=== PATIENT | female | born 1940 | race Caucasian/White ===

== ENCOUNTER 2023-12-04 01:50 | Inpatient (IN) | payer BC, MEDICAID ==
[~2023-12-04] VITALS: Ht 160 cm; Wt 74.8 kg
[2023-12-04] MEDS: normal saline 1000ML IV soln IVB ONE (02:32)
[2023-12-04 02:45] LABS: BASOPHILS % (AUTO) 0.2 % (0-1); EOSINOPHILS % (AUTO) 0 % (0-6)
[2023-12-04 02:46] LABS: LYMPHOCYTES # (AUTO) 0.9 X10'3 (1.1-4.8); LYMPHOCYTES % (AUTO) 7.9 % (21-51); MEAN PLATELET VOLUME 8.7 FL (7.4-10.4); MONOCYTES # (AUTO) 1.3 X10'3 (0-0.9); MONOCYTES % (AUTO) 10.8 % (2-12); NEUTROPHILS # (AUTO) 9.6 X10'3 (1.8-7.7); NEUTROPHILS % (AUTO) 81.1 % (42-75); PLATELET COUNT 344 X10'3 (140-440); WHITE BLOOD COUNT 11.9 X10'3 (4.5-11.0)
[2023-12-04] MEDS: ondansetron/PF 4mg/2ml inj IV ONE (02:50)
[2023-12-04] MEDS: famotidine/PF 10 mg/ml inj IV ONE (02:50)
[2023-12-04 02:53] LABS: ALBUMIN 3.6 G/DL (3.4-5.0); ANION GAP 24 (8-16); BLOOD UREA NITROGEN 89 MG/DL (7-18); BUN/CREATININE RATIO 13.6 (10.0-20.0); CALCIUM 8.3 MG/DL (8.5-10.1); CHLORIDE 101 MMOL/L (99-107); CREATININE 6.55 MG/DL (0.40-0.90); GLUCOSE 99 MG/DL (70-104); SODIUM 138 MMOL/L (135-145); eCRCL 5 ML/MIN; eGFR 6 ML/MIN
[2023-12-04 03:15] LABS: HEMATOCRIT 40.8 % (35.0-45.0); MEAN CORPUSCULAR HEMOGLOBIN 20.5 PG (27.0-31.0); MEAN CORPUSCULAR HGB CONC 31.8 g/dL (33.0-36.5); MEAN CORPUSCULAR VOLUME 64.4 FL (78-98); RED BLOOD COUNT 6.33 X10'6 (4.20-5.60); RED CELL DISTRIBUTION WIDTH 20.1 % (11.5-14.5)
[2023-12-04 03:17] LABS: POTASSIUM 2.4 MMOL/L (3.5-5.1); TOTAL CARBON DIOXIDE 12.9 MMOL/L (24-32)
[2023-12-04] MEDS: LidoCAINE 2% Topical Jelly 11mL syringe (UROJET) TOP ONE (03:32)
[2023-12-04] MEDS: piperacillin/tazo 3.375gm/50ml 50 ML IV ONE (03:56)
[2023-12-04] MEDS: potassium CL 10mEq/100ml bag 100 ML IV SCH (03:57)
[2023-12-04] MEDS: ringers solution, lactated 1000ml IV soln IV ONE (03:57)
[2023-12-04] MEDS: sodium bicarbonate (8.4%) inj. 50 MEQ in dextrose 5%-water 1,000 ML IV SCH (03:58)
[2023-12-04 04:00] LABS: LIPASE > 375 U/L (16-77)
[2023-12-04] MEDS ORDERED: mag hydrox/Alum hydrox/simeth 30ml oral suspension PO PRN (04:00)
[2023-12-04] MEDS ORDERED: potassium Cl 20 mEq SR tablet PO PRN (04:00)
[2023-12-04] MEDS ORDERED: magnesium Cl slow-release 64mg tablet PO PRN (04:00)
[2023-12-04] MEDS ORDERED: magnesium 2GM in 50ml NS 50 ML IV PRN (04:00)
[2023-12-04] MEDS ORDERED: magnesium hydroxide 30ml (MOM) UD suspension PO PRN (04:00)
[2023-12-04] MEDS ORDERED: acetaminophen 325mg tablet PO PRN (04:00)
[2023-12-04] MEDS ORDERED: ondansetron/PF 4mg/2ml inj IV PRN (04:00)
[2023-12-04] MEDS ORDERED: magnesium 4gm in 100ml NS 100 ML IV PRN (04:00)
[2023-12-04 04:33] LABS: HEMOGLOBIN A1C 5.4 % (4.5-6.2)
[2023-12-04] MEDS: potassium Cl 20 mEq SR tablet PO STA (04:34)
[2023-12-04] MEDS: normal saline 1000ml 1,000 ML IV SCH ×2 (04:41→10:38)
[2023-12-04 04:52] LABS: ALANINE AMINOTRANSFERASE 23 U/L (12-78); ALBUMIN/GLOBULIN RATIO 0.8 (1.1-1.5); ALKALINE PHOSPHATASE 69 IU/L (46-116); ASPARTATE AMINO TRANSFERASE 25 U/L (10-37); BILIRUBIN,DIRECT 0.2 MG/DL (0-0.3); BILIRUBIN,TOTAL 0.4 MG/DL (0.1-1.0); MAGNESIUM 2.2 MG/DL (1.5-2.4); PRO BRAIN NATRIURETIC PEPTIDE 3572 PG/ML (0-450); TOTAL PROTEIN 7.9 G/DL (6.4-8.2)
[2023-12-04 05:33] LABS: PLATELET ESTIMATE NORMAL
[2023-12-04 05:34] LABS: ANISOCYTOSIS 3+; MICROCYTOSIS 2+
[2023-12-04 05:35] LABS: BURR CELLS FEW; ELLIPTOCYTES FEW
[2023-12-04 07:17] LABS: BILIRUBIN,URINE NEGATIVE (Neg); CLARITY,URINE CLOUDY (Clear); COLOR,URINE YELLOW (Yellow); GLUCOSE, URINE NEGATIVE (Neg); KETONES,URINE TRACE mg/dl (Neg); LEUKOCYTE ESTERASE ,URINE SMALL (Neg); NITRITES, URINE NEGATIVE (Neg); OCCULT BLOOD,URINE TRACE-INTACT (Neg); PROTEIN,URINE 100 mg/dl (Neg); UROBILINOGEN,URINE 0.2 E.U/dL (0.2-1.0)
[2023-12-04 07:19] LABS: UA COLLECTION TYPE FOLEY CATH
[2023-12-04 07:23] LABS: BACTERIA,URINE 4+ /HPF (Neg); RBC,URINE 0-2 /HPF (0-2); SQUAMOUS EPITHELIAL CELL,UR MODERATE /LPF (FEW); WBC,URINE 50-100 /HPF (0-4)
[2023-12-04 07:24] LABS: MUCUS STRANDS NONE SEEN /LPF (Neg); RENAL CELLS, URINE FEW /HPF; TRANSITIONAL EPI CELLS,URINE FEW /HPF; WBC CLUMPS,URINE FEW /HPF (NEGATIVE)
[2023-12-04] MEDS: K and/or MAG REPLACEMENT MC SCH (08:00)
[2023-12-04] MEDS: docusate sod 100mg capsule PO SCH (08:00)
[2023-12-04] MEDS: azithromycin 250mg tablet PO SCH (08:32)
[2023-12-04] MEDS: heparin, porcine 5000 units/ml vial SQ SCH (08:32)
[2023-12-04 09:22] LABS: ALANINE AMINOTRANSFERASE 20 U/L (12-78); ALBUMIN 2.4 G/DL (3.4-5.0); ALBUMIN/GLOBULIN RATIO 0.7 (1.1-1.5); ALKALINE PHOSPHATASE 44 IU/L (46-116); ANION GAP 16 (8-16); BILIRUBIN,TOTAL 0.5 MG/DL (0.1-1.0); BLOOD UREA NITROGEN 78 MG/DL (7-18); BUN/CREATININE RATIO 15.4 (10.0-20.0); CALCIUM 6.4 MG/DL (8.5-10.1); CHLORIDE 92 MMOL/L (99-107); CREATININE 5.07 MG/DL (0.40-0.90); SODIUM 123 MMOL/L (135-145); TOTAL PROTEIN 5.8 G/DL (6.4-8.2); eCRCL 7 ML/MIN; eGFR 8 ML/MIN
[2023-12-04 09:26] LABS: ASPARTATE AMINO TRANSFERASE 56 U/L (10-37); POTASSIUM 3.1 MMOL/L (3.5-5.1)
[2023-12-04 09:37] LABS: GLUCOSE 575 MG/DL (70-104); TOTAL CARBON DIOXIDE 14.9 MMOL/L (24-32)
[2023-12-04] MEDS: potassium Cl 40MEQ/1/2NS 520ml 520 ML IV PRN (09:46)
[2023-12-04] MEDS: INSULIN LISPRO 100 UNIT/ML INSULN.PEN MULTI-DOSE SQ STA (10:01)
[2023-12-04] MEDS ORDERED: DEXTROSE 15 GM of carb/4 tabs (each vial/BOTTLE has 4 tablets) PO PRN ×2 (10:15)
[2023-12-04] MEDS ORDERED: dextrose 50%-water 50ml dispensing syringe IV PRN ×2 (10:15)
[2023-12-04] MEDS ORDERED: glucagon, human recombinant 1mg kit SUBCUT PRN (10:15)
[2023-12-04] MEDS ORDERED: sodium bicarbonate (8.4%) inj. 50 MEQ in normal saline 1000ml 1,000 ML IV SCH (10:50)
[2023-12-04] MEDS: metoprolol succinate 25mg (24-HOUR) SR. Tablet PO SCH (10:51)
[2023-12-04 11:39] LABS: APTT 33 SECONDS (22-32); INR 1.2 INR; PROTHROMBIN TIME 12.1 SECONDS (9.0-12.0)
[2023-12-04] MEDS: INSULIN LISPRO 100 UNIT/ML INSULN.PEN MULTI-DOSE SQ SCH (11:45)
[2023-12-04] MEDS: sodium bicarbonate (8.4%) inj. 100 MEQ in sodium chloride 0.45% 1,000 ML IV SCH (12:10)
[2023-12-04] MEDS ORDERED: ONDA4TAB12 PO (18:54)
[2023-12-04] MEDS ORDERED: OMEP20CA16 PO (18:54)
[2023-12-04] MEDS ORDERED: SERT-153 PO (18:54)
[2023-12-04] MEDS ORDERED: APIX5TAB3 PO (18:54)
[2023-12-04] MEDS ORDERED: LOPE2CAP14 PO (18:54)
[2023-12-04] MEDS ORDERED: CETI-90 PO (18:54)
[2023-12-04] MEDS ORDERED: TAM75C PO (18:54)
[2023-12-04] MEDS ORDERED: LISI20TA28 PO (18:54)
[2023-12-04] MEDS ORDERED: CETI10CA PO (18:54)
[2023-12-04] MEDS ORDERED: GABA-530 PO (18:54)
[2023-12-04] MEDS ORDERED: MONT-40 PO (18:54)
[2023-12-04] MEDS ORDERED: ATOR40TA PO (18:54)
[2023-12-04] MEDS ORDERED: METO50TA16 PO (18:54)
[2023-12-04 19:43] LABS: ALANINE AMINOTRANSFERASE 17 U/L (12-78); ALBUMIN 2.4 G/DL (3.4-5.0); ALBUMIN/GLOBULIN RATIO 0.8 (1.1-1.5); ALKALINE PHOSPHATASE 43 IU/L (46-116); ANION GAP 13 (8-16); ASPARTATE AMINO TRANSFERASE 19 U/L (10-37); BILIRUBIN,TOTAL 0.4 MG/DL (0.1-1.0); BLOOD UREA NITROGEN 73 MG/DL (7-18); BUN/CREATININE RATIO 18.5 (10.0-20.0); CALCIUM 6.5 MG/DL (8.5-10.1); CHLORIDE 103 MMOL/L (99-107); CREATININE 3.95 MG/DL (0.40-0.90); GLUCOSE 64 MG/DL (70-104); MAGNESIUM 1.5 MG/DL (1.5-2.4); PHOSPHORUS 4.8 MG/DL (2.3-4.5); TOTAL CARBON DIOXIDE 22.8 MMOL/L (24-32); TOTAL PROTEIN 5.4 G/DL (6.4-8.2); eCRCL 9 ML/MIN; eGFR 11 ML/MIN
[2023-12-04 19:57] LABS: SODIUM 139 MMOL/L (135-145)
[2023-12-04 20:00] VITALS: RESP 22; O2SAT 96
[2023-12-04 20:13] LABS: POTASSIUM 2.1 MMOL/L (3.5-5.1)
[2023-12-04 20:30] VITALS: BP 151/55; PULSE 75; RESP 22; TEMP 97.7; O2SAT 96
[2023-12-04 22:00] VITALS: BP 135/52; PULSE 76; RESP 25; TEMP 97.4; O2SAT 97
[2023-12-04] MEDS: piperacillin/tazo 3.375gm/50ml 50 ML IV SCH (22:13)
[2023-12-04] MEDS: apixaban 2.5mg tablet PO SCH (23:48)
[2023-12-05] VITALS (8 sets, daily range): BP systolic 125–150; BP diastolic 44–57; PULSE 68–85; RESP 14–22; TEMP 97.2–98.4; O2SAT 94–98
[2023-12-05 08:39] LABS: BASOPHILS % (AUTO) 0.2 % (0-1); EOSINOPHILS % (AUTO) 0 % (0-6); LYMPHOCYTES # (AUTO) 1.1 X10'3 (1.1-4.8); MEAN CORPUSCULAR HGB CONC 30.4 g/dL (33.0-36.5); MEAN CORPUSCULAR VOLUME 65.8 FL (78-98); MEAN PLATELET VOLUME 8.7 FL (7.4-10.4); MONOCYTES # (AUTO) 1.2 X10'3 (0-0.9); MONOCYTES % (AUTO) 13.9 % (2-12); NEUTROPHILS # (AUTO) 6.2 X10'3 (1.8-7.7); NEUTROPHILS % (AUTO) 72.9 % (42-75); PLATELET COUNT 180 X10'3 (140-440); RED BLOOD COUNT 5.02 X10'6 (4.20-5.60); RED CELL DISTRIBUTION WIDTH 21.1 % (11.5-14.5); WHITE BLOOD COUNT 8.5 X10'3 (4.5-11.0)
[2023-12-05 08:51] LABS: APTT 33 SECONDS (22-32); INR 1.2 INR; PROTHROMBIN TIME 12.3 SECONDS (9.0-12.0)
[2023-12-05 08:59] LABS: ALANINE AMINOTRANSFERASE 17 U/L (12-78); ALBUMIN 2.6 G/DL (3.4-5.0); ALBUMIN/GLOBULIN RATIO 0.8 (1.1-1.5); ALKALINE PHOSPHATASE 46 IU/L (46-116); ANION GAP 16 (8-16); ASPARTATE AMINO TRANSFERASE 22 U/L (10-37); BILIRUBIN,TOTAL 0.5 MG/DL (0.1-1.0); BLOOD UREA NITROGEN 74 MG/DL (7-18); BUN/CREATININE RATIO 25.3 (10.0-20.0); CALCIUM 7.7 MG/DL (8.5-10.1); CHLORIDE 108 MMOL/L (99-107); CHOLESTEROL 70 MG/DL (0-200); CREATININE 2.92 MG/DL (0.40-0.90); GLUCOSE 76 MG/DL (70-104); HDL CHOLESTEROL 35 MG/DL (35-60); LDL CHOLESTEROL 21 MG/DL (50-100); MAGNESIUM 1.7 MG/DL (1.5-2.4); PHOSPHORUS 3.9 MG/DL (2.3-4.5); SODIUM 142 MMOL/L (135-145); TOTAL CARBON DIOXIDE 17.6 MMOL/L (24-32); TOTAL PROTEIN 5.8 G/DL (6.4-8.2); TRIGLYCERIDES 130 MG/DL (20-135); eCRCL 12 ML/MIN; eGFR 15 ML/MIN
[2023-12-05 09:01] LABS: POTASSIUM 2.9 MMOL/L (3.5-5.1)
[2023-12-05 09:24] LABS: ANISOCYTOSIS 3+; ELLIPTOCYTES FEW; MICROCYTOSIS 2+; PLATELET ESTIMATE NORMAL; TOTAL CELLS COUNTED 100
[2023-12-05] MEDS: nystatin 15 GM powder TP SCH (09:51)
[2023-12-05 11:50] LABS: LIPASE 318 U/L (16-77)
[2023-12-05 13:41] LABS: C DIFFICILE TOXINS A&B NEGATIVE (Neg)
[2023-12-05 13:42] LABS: C DIFF ANTIGEN NEGATIVE (NEGATIVE); C DIFF SPECIMEN=DIARRHEA? ACCEPTABLE
[2023-12-05] MEDS: sodium bicarbonate (8.4%) inj. 100 MEQ in dextrose 5%-water 1,000 ML IV SCH (13:52)
[2023-12-05] MEDS: lactose-reduced food (Ensure Enlive) - 237ml bottle PO SCH (18:33)
[2023-12-05 18:43] LABS: ALBUMIN 2.7 G/DL (3.4-5.0); ANION GAP 13 (8-16); BLOOD UREA NITROGEN 59 MG/DL (7-18); BUN/CREATININE RATIO 30.4 (10.0-20.0); CALCIUM 7.8 MG/DL (8.5-10.1); CHLORIDE 108 MMOL/L (99-107); CREATININE 1.94 MG/DL (0.40-0.90); GLUCOSE 104 MG/DL (70-104); MAGNESIUM 1.8 MG/DL (1.5-2.4); PHOSPHORUS 2.7 MG/DL (2.3-4.5); SODIUM 143 MMOL/L (135-145); TOTAL CARBON DIOXIDE 22.2 MMOL/L (24-32); eCRCL 18 ML/MIN; eGFR 25 ML/MIN
[2023-12-05 18:45] LABS: POTASSIUM 2.9 MMOL/L (3.5-5.1)
[2023-12-05] MEDS: gabapentin 100mg capsule PO SCH (19:55)
[2023-12-05] MEDS: POTASSIUM BICARB 20meq eff tab 20 MEQ TABLET.EFF PO STA (19:55)
[2023-12-06] VITALS (8 sets, daily range): BP systolic 132–142; BP diastolic 56–63; PULSE 77–94; RESP 16–26; TEMP 97.8–98.2; O2SAT 93–97
[2023-12-06] MEDS: metoprolol succinate 25mg (24-HOUR) SR. Tablet PO SCH (07:45)
[2023-12-06] MEDS: atorvastatin 20mg tablet PO SCH (07:45)
[2023-12-06] MEDS: montelukast 10mg tablet PO SCH (07:45)
[2023-12-06] MEDS: sertraline 50mg tablet PO SCH (07:45)
[2023-12-06 09:25] LABS: APTT 27 SECONDS (22-32); INR 1.1 INR; PROTHROMBIN TIME 11.4 SECONDS (9.0-12.0)
[2023-12-06 09:26] LABS: BASOPHILS % (AUTO) 0.5 % (0-1); EOSINOPHILS % (AUTO) 0.1 % (0-6); HEMOGLOBIN 10.4 g/dl (12.0-16.0); LYMPHOCYTES # (AUTO) 1.8 X10'3 (1.1-4.8); MEAN CORPUSCULAR HEMOGLOBIN 20.1 PG (27.0-31.0); MEAN CORPUSCULAR HGB CONC 30.8 g/dL (33.0-36.5); MEAN CORPUSCULAR VOLUME 65.4 FL (78-98); MEAN PLATELET VOLUME 9.3 FL (7.4-10.4); MONOCYTES % (AUTO) 12.9 % (2-12); NEUTROPHILS # (AUTO) 4.8 X10'3 (1.8-7.7); NEUTROPHILS % (AUTO) 62.5 % (42-75); PLATELET COUNT 165 X10'3 (140-440); RED BLOOD COUNT 5.19 X10'6 (4.20-5.60); RED CELL DISTRIBUTION WIDTH 20.7 % (11.5-14.5); WHITE BLOOD COUNT 7.6 X10'3 (4.5-11.0)
[2023-12-06 09:36] LABS: ALANINE AMINOTRANSFERASE 16 U/L (12-78); ALBUMIN 2.7 G/DL (3.4-5.0); ALBUMIN/GLOBULIN RATIO 0.8 (1.1-1.5); ALKALINE PHOSPHATASE 50 IU/L (46-116); ANION GAP 7 (8-16); ASPARTATE AMINO TRANSFERASE 20 U/L (10-37); BILIRUBIN,TOTAL 1.1 MG/DL (0.1-1.0); BLOOD UREA NITROGEN 39 MG/DL (7-18); BUN/CREATININE RATIO 36.1 (10.0-20.0); CALCIUM 8.1 MG/DL (8.5-10.1); CHLORIDE 109 MMOL/L (99-107); CREATININE 1.08 MG/DL (0.40-0.90); GLUCOSE 99 MG/DL (70-104); PHOSPHORUS 1.7 MG/DL (2.3-4.5); POTASSIUM 3.3 MMOL/L (3.5-5.1); SODIUM 145 MMOL/L (135-145); TOTAL CARBON DIOXIDE 28.6 MMOL/L (24-32); TOTAL PROTEIN 6.3 G/DL (6.4-8.2); eCRCL 32 ML/MIN; eGFR 48 ML/MIN
[2023-12-06 10:09] LABS: HYPOCHROMASIA 1+; PLATELET ESTIMATE NORMAL
[2023-12-06 10:10] LABS: ANISOCYTOSIS 3+; BURR CELLS FEW; ELLIPTOCYTES 1+; MICROCYTOSIS 2+; TEAR DROP CELLS 1+
[2023-12-06] MEDS: potassium Cl 20 mEq SR tablet PO PRN (10:53)
[2023-12-06] MEDS ORDERED: metoclopramide 10mg tablet PO PRN (14:00)
[2023-12-06] MEDS: ringers solution, lacted 1,000 ML IV SCH (14:43)
[2023-12-06] MEDS: diphenoxylate/atropine tablet (Lomotil) PO PRN (23:48)
[2023-12-07] VITALS (8 sets, daily range): BP systolic 139–182; BP diastolic 49–76; PULSE 75–89; RESP 16–27; TEMP 98–98.6; O2SAT 94–97
[2023-12-07 06:50] LABS: APTT 29 SECONDS (22-32); INR 1.1 INR; PROTHROMBIN TIME 11.9 SECONDS (9.0-12.0)
[2023-12-07 06:57] LABS: BASOPHILS % (AUTO) 0.4 % (0-1); EOSINOPHILS # (AUTO) 0.1 X10'3 (0-0.9); EOSINOPHILS % (AUTO) 0.9 % (0-6); LYMPHOCYTES % (AUTO) 28.4 % (21-51); MEAN CORPUSCULAR HEMOGLOBIN 19.8 PG (27.0-31.0); MEAN CORPUSCULAR HGB CONC 30.1 g/dL (33.0-36.5); MEAN CORPUSCULAR VOLUME 65.8 FL (78-98); MEAN PLATELET VOLUME 9.2 FL (7.4-10.4); MONOCYTES % (AUTO) 14.1 % (2-12); NEUTROPHILS % (AUTO) 56.2 % (42-75); PLATELET COUNT 178 X10'3 (140-440); RED BLOOD COUNT 4.81 X10'6 (4.20-5.60); RED CELL DISTRIBUTION WIDTH 21.2 % (11.5-14.5); WHITE BLOOD COUNT 7.1 X10'3 (4.5-11.0)
[2023-12-07 06:58] LABS: ALANINE AMINOTRANSFERASE 17 U/L (12-78); ALBUMIN 2.5 G/DL (3.4-5.0); ALBUMIN/GLOBULIN RATIO 0.8 (1.1-1.5); ALKALINE PHOSPHATASE 47 IU/L (46-116); ANION GAP 3 (8-16); ASPARTATE AMINO TRANSFERASE 18 U/L (10-37); BILIRUBIN,TOTAL 1.3 MG/DL (0.1-1.0); BLOOD UREA NITROGEN 19 MG/DL (7-18); BUN/CREATININE RATIO 32.8 (10.0-20.0); CALCIUM 8.1 MG/DL (8.5-10.1); CHLORIDE 110 MMOL/L (99-107); CREATININE 0.58 MG/DL (0.40-0.90); GLUCOSE 88 MG/DL (70-104); HEMATOCRIT 31.1 % (35.0-45.0); HEMOGLOBIN 9.6 g/dl (12.0-16.0); MAGNESIUM 1.8 MG/DL (1.5-2.4); PHOSPHORUS 1.5 MG/DL (2.3-4.5); POTASSIUM 3.6 MMOL/L (3.5-5.1); SODIUM 146 MMOL/L (135-145); TOTAL CARBON DIOXIDE 32.8 MMOL/L (24-32); TOTAL PROTEIN 5.7 G/DL (6.4-8.2); eCRCL 59 ML/MIN; eGFR > 90 ML/MIN
[2023-12-07 09:48] LABS: LIPASE > 375 U/L (16-77)
[2023-12-07] MEDS ORDERED: LACT1CAP26 PO (15:16)
[2023-12-07] MEDS ORDERED: CEFD300C3 PO (15:16)
[2023-12-07] MEDS ORDERED: CHOL400T8 PO (15:16)
[2023-12-07] MEDS: lisinopril 20mg tablet PO SCH (20:31)
[2023-12-08 02:00] VITALS: BP 136/68; PULSE 78; RESP 16; TEMP 97.6; O2SAT 95
[2023-12-08 06:06] LABS: BASOPHILS % (AUTO) 0.4 % (0-1); EOSINOPHILS # (AUTO) 0.1 X10'3 (0-0.9); EOSINOPHILS % (AUTO) 0.9 % (0-6); HEMATOCRIT 33.1 % (35.0-45.0); HEMOGLOBIN 10.1 g/dl (12.0-16.0); LYMPHOCYTES % (AUTO) 25.6 % (21-51); MEAN CORPUSCULAR HEMOGLOBIN 20.2 PG (27.0-31.0); MEAN CORPUSCULAR HGB CONC 30.5 g/dL (33.0-36.5); MEAN CORPUSCULAR VOLUME 66.1 FL (78-98); MEAN PLATELET VOLUME 8.6 FL (7.4-10.4); MONOCYTES # (AUTO) 0.9 X10'3 (0-0.9); MONOCYTES % (AUTO) 11.4 % (2-12); NEUTROPHILS # (AUTO) 4.8 X10'3 (1.8-7.7); NEUTROPHILS % (AUTO) 61.7 % (42-75); PLATELET COUNT 197 X10'3 (140-440); RED CELL DISTRIBUTION WIDTH 21.2 % (11.5-14.5); WHITE BLOOD COUNT 7.7 X10'3 (4.5-11.0)
[2023-12-08 06:16] LABS: INR 1.2 INR; PROTHROMBIN TIME 12.3 SECONDS (9.0-12.0)
[2023-12-08 06:37] LABS: ALANINE AMINOTRANSFERASE 17 U/L (12-78); ALBUMIN 2.6 G/DL (3.4-5.0); ALBUMIN/GLOBULIN RATIO 0.8 (1.1-1.5); ALKALINE PHOSPHATASE 50 IU/L (46-116); ANION GAP 4 (8-16); ASPARTATE AMINO TRANSFERASE 18 U/L (10-37); BILIRUBIN,TOTAL 1.1 MG/DL (0.1-1.0); BLOOD UREA NITROGEN 13 MG/DL (7-18); BUN/CREATININE RATIO 24.1 (10.0-20.0); CALCIUM 8.4 MG/DL (8.5-10.1); CHLORIDE 105 MMOL/L (99-107); CREATININE 0.54 MG/DL (0.40-0.90); GLUCOSE 89 MG/DL (70-104); MAGNESIUM 1.7 MG/DL (1.5-2.4); PHOSPHORUS 1.8 MG/DL (2.3-4.5); POTASSIUM 3.4 MMOL/L (3.5-5.1); SODIUM 141 MMOL/L (135-145); TOTAL CARBON DIOXIDE 31.8 MMOL/L (24-32); eCRCL 63 ML/MIN; eGFR > 90 ML/MIN
[2023-12-08 06:52] LABS: PLATELET ESTIMATE NORMAL
[2023-12-08 06:53] LABS: ANISOCYTOSIS 3+
[2023-12-08 06:55] LABS: HYPOCHROMASIA 1+; MICROCYTOSIS 2+
[2023-12-08 06:58] LABS: ELLIPTOCYTES FEW; STOMATOCYTES FEW
[2023-12-08 06:59] LABS: SCHISTOCYTES FEW; TEAR DROP CELLS FEW
[2023-12-08 07:01] LABS: LARGE PLATELETS FEW
[2023-12-08 07:18] VITALS: BP_SYST 146; PULSE 88
[2023-12-08] MEDS: pantoprazole 40mg Tablet.DR PO SCH (07:18)
[2023-12-08 07:36] LABS: CREATININE, URINE 143.6 mg/dL (Not Estab.); MICROALBUMIN,U,RANDOM 175.2 ug/mL (Not Estab.)
== END 2023-12-08 08:10 | disposition home health service (06) | DRG 871 ==
LOC: ER 01:52 → ED HOLD 04:07 → PCU 3S 20:25
PROVIDERS: ADMIT Student in an Organized Health Care Education/Training Program; ATTEND Family Medicine
DX: A41.9 Sepsis, unspecified organism (principal); K85.90 Acute pancreatitis without necrosis or infection, unspecified; R65.21 Severe sepsis with septic shock; N39.0 Urinary tract infection, site not specified; N17.9 Acute kidney failure, unspecified; E87.29 Other acidosis; E87.6 Hypokalemia; Z90.710 Acquired absence of both cervix and uterus; I48.91 Unspecified atrial fibrillation; E86.0 Dehydration; I10 Essential (primary) hypertension; K21.9 Gastro-esophageal reflux disease without esophagitis; Z20.822 Contact with and (suspected) exposure to COVID-19; M19.09 Primary osteoarthritis, other specified site; R73.9 Hyperglycemia, unspecified; K52.9 Noninfective gastroenteritis and colitis, unspecified
CPT/HCPCS: 36415; 71045; 74176; 76770; 80048; 80053; 80061; 80076; 81001; 82043; 82306; 82330; 82570; 82947; 82948; 83036; 83605; 83690; 83735; 83880; 83970; 84100; 84132; 84133; 84145; 84300; 84484; 85007; 85008; 85025; 85610; 85730; 87040; 87045; 87046; 87077; 87081; 87088; 87186; 87324; 87449; 87502; 87503; 87811; 92508; 92616; 93005; 93306; 96365; 96367; 96368; 96375; 97161; 97530; 99291; A4314; A6213; A6250; A6449; G0378; J1644; J1815; J2405; J2543; J3480; J3490; J7030; J7040; J7070; J7120

== ENCOUNTER 2024-09-21 09:56 | Inpatient (IN) | payer MEDICARE, MEDICAID ==
[~2024-09-21] VITALS: Ht 157.5 cm; Wt 89.0 kg
[~2024-09-21 09:56] MED LIST: APIX5TAB3 PO; ATOR40TA PO; CETI-90 PO; CETI10CA PO; CHOL400T8 PO; GABA-530 PO; LACT1CAP26 PO; LISI20TA28 PO; LOPE2CAP14 PO; METO50TA16 PO; MONT-40 PO; OMEP20CA16 PO; ONDA-243 PO; SERT-153 PO
[2024-09-21 10:42] LABS: BASOPHILS % (AUTO) 0.6 % (0-1); EOSINOPHILS % (AUTO) 0 % (0-6); HEMATOCRIT 28.5 % (35.0-45.0); HEMOGLOBIN 8.6 g/dl (12.0-16.0); LYMPHOCYTES # (AUTO) 1.4 X10'3 (1.1-4.8); LYMPHOCYTES % (AUTO) 27.3 % (21-51); MEAN CORPUSCULAR HEMOGLOBIN 21.9 PG (27.0-31.0); MEAN CORPUSCULAR HGB CONC 30.1 g/dL (33.0-36.5); MEAN CORPUSCULAR VOLUME 72.9 FL (78-98); MEAN PLATELET VOLUME 8.6 FL (7.4-10.4); MONOCYTES # (AUTO) 0.6 X10'3 (0-0.9); MONOCYTES % (AUTO) 12.8 % (2-12); NEUTROPHILS % (AUTO) 59.3 % (42-75); PLATELET COUNT 237 X10'3 (140-440); RED BLOOD COUNT 3.91 X10'6 (4.20-5.60); RED CELL DISTRIBUTION WIDTH 19.1 % (11.5-14.5)
[2024-09-21 11:06] LABS: ALANINE AMINOTRANSFERASE 13 U/L (12-78); ALBUMIN 2.9 G/DL (3.4-5.0); ALBUMIN/GLOBULIN RATIO 0.9 (1.1-1.5); ALKALINE PHOSPHATASE 65 IU/L (46-116); ANION GAP 4 (8-16); ASPARTATE AMINO TRANSFERASE 14 U/L (10-37); BILIRUBIN,TOTAL 1.1 MG/DL (0.1-1.0); BLOOD UREA NITROGEN 15 MG/DL (7-18); BUN/CREATININE RATIO 35.7 (10.0-20.0); CALCIUM 8.5 MG/DL (8.5-10.1); CHLORIDE 106 MMOL/L (99-107); CREATININE 0.42 MG/DL (0.40-0.90); GLUCOSE 88 MG/DL (70-104); POTASSIUM 3.6 MMOL/L (3.5-5.1); PRO BRAIN NATRIURETIC PEPTIDE 2924 PG/ML (0-450); SODIUM 141 MMOL/L (135-145); TOTAL CARBON DIOXIDE 30.7 MMOL/L (24-32); TOTAL PROTEIN 6.3 G/DL (6.4-8.2); eCRCL 76 ML/MIN; eGFR > 90 ML/MIN
[2024-09-21 11:26] LABS: ANISOCYTOSIS 2+; HYPOCHROMASIA 1+; MICROCYTOSIS 1+; PLATELET ESTIMATE NORMAL; TARGET CELLS FEW
[2024-09-21 11:28] LABS: ELLIPTOCYTES 1+; TEAR DROP CELLS FEW
[2024-09-21] MEDS: ipratropium/albuterol 3ml nebule NEB ONE (12:40)
[2024-09-21 12:49] VITALS: PULSE 66; PULSE 74; RESP 20; O2SAT 92; O2SAT 96
[2024-09-21] MEDS ORDERED: magnesium hydroxide 30ml (MOM) UD suspension PO PRN (12:55)
[2024-09-21] MEDS ORDERED: ondansetron/PF 4mg/2ml inj IV PRN (12:55)
[2024-09-21] MEDS ORDERED: potassium Cl 20 mEq SR tablet PO PRN (12:55)
[2024-09-21] MEDS ORDERED: magnesium sulf-water 2g/50mL 50 ML IV PRN (12:55)
[2024-09-21] MEDS ORDERED: magnesium sulf-water 4G/100mL 100 ML IV PRN (12:55)
[2024-09-21] MEDS ORDERED: potassium Cl 40MEQ/1/2NS 520ml 520 ML IV PRN (12:55)
[2024-09-21] MEDS ORDERED: magnesium Cl slow-release 64mg tablet PO PRN (12:55)
[2024-09-21] MEDS ORDERED: acetaminophen 325mg tablet PO PRN (12:55)
[2024-09-21] MEDS: methylPREDNISolone sod succ 125mg/2ml vial IV ONE (13:33)
[2024-09-21] MEDS: furosemide 40mg/4ml inj IV ONE (13:34)
[2024-09-21] MEDS: acetaminophen 325mg tablet PO SCH (16:33)
[2024-09-21 16:53] LABS: D-DIMER 0.32 MG/L FEU (0-0.50)
[2024-09-21] MEDS ORDERED: ASPI81TA52 PO (17:44)
[2024-09-21] MEDS: lisinopril 10 MG tablet PO ONE (18:10)
[2024-09-21] MEDS ORDERED: heparin, porcine 5000 units/ml vial SQ SCH (20:00)
[2024-09-21] MEDS: metoprolol tartrate 25mg tablet PO SCH (20:28)
[2024-09-21] MEDS: apixaban 5mg tablet PO SCH (20:28)
[2024-09-21] MEDS: furosemide 20 MG/2 ML vial IV SCH (20:28)
[2024-09-21] MEDS: docusate sod 100mg capsule PO SCH (20:28)
[2024-09-22] VITALS (9 sets, daily range): BP systolic 112–144; BP diastolic 46–58; PULSE 69–90; RESP 14–20; TEMP 97.3–98.1; O2SAT 92–98
[2024-09-22 05:57] LABS: BASOPHILS % (AUTO) 0.1 % (0-1); EOSINOPHILS % (AUTO) 0 % (0-6); HEMATOCRIT 26.4 % (35.0-45.0); HEMOGLOBIN 7.9 g/dl (12.0-16.0); LYMPHOCYTES % (AUTO) 23.8 % (21-51); MEAN CORPUSCULAR HEMOGLOBIN 21.2 PG (27.0-31.0); MEAN CORPUSCULAR HGB CONC 29.8 g/dL (33.0-36.5); MEAN CORPUSCULAR VOLUME 71.1 FL (78-98); MEAN PLATELET VOLUME 8.4 FL (7.4-10.4); MONOCYTES # (AUTO) 0.6 X10'3 (0-0.9); MONOCYTES % (AUTO) 14.8 % (2-12); NEUTROPHILS # (AUTO) 2.5 X10'3 (1.8-7.7); NEUTROPHILS % (AUTO) 61.3 % (42-75); PLATELET COUNT 250 X10'3 (140-440); RED BLOOD COUNT 3.71 X10'6 (4.20-5.60); WHITE BLOOD COUNT 4.1 X10'3 (4.5-11.0)
[2024-09-22 06:06] LABS: ALBUMIN 2.9 G/DL (3.4-5.0); ANION GAP 6 (8-16); BLOOD UREA NITROGEN 19 MG/DL (7-18); BUN/CREATININE RATIO 35.8 (10.0-20.0); CALCIUM 8.5 MG/DL (8.5-10.1); CHLORIDE 104 MMOL/L (99-107); CREATININE 0.53 MG/DL (0.40-0.90); GLUCOSE 98 MG/DL (70-104); POTASSIUM 3.2 MMOL/L (3.5-5.1); SODIUM 143 MMOL/L (135-145); TOTAL CARBON DIOXIDE 32.6 MMOL/L (24-32); eCRCL 60 ML/MIN; eGFR > 90 ML/MIN
[2024-09-22] MEDS: lisinopril 20mg tablet PO SCH (08:11)
[2024-09-22] MEDS: aspirin 81mg, enteric-coated 1 TAB TABLET.DR PO SCH (08:11)
[2024-09-22] MEDS: sertraline 50mg tablet PO SCH (08:12)
[2024-09-22] MEDS: atorvastatin 20mg tablet PO SCH (08:12)
[2024-09-22] MEDS: pantoprazole 40mg Tablet.DR PO SCH (08:12)
[2024-09-22] MEDS: montelukast 10mg tablet PO SCH (08:13)
[2024-09-22] MEDS: mag hydrox/Alum hydrox/simeth 30ml oral suspension PO PRN (15:16)
[2024-09-22] MEDS: potassium Cl 20 mEq SR tablet PO PRN (21:59)
[2024-09-23 02:00] VITALS: BP 122/50; PULSE 79; RESP 16; TEMP 98.1; O2SAT 95
[2024-09-23 06:00] VITALS: BP 140/50; PULSE 68; RESP 18; TEMP 97.6; O2SAT 96
[2024-09-23 07:26] LABS: BASOPHILS % (AUTO) 0.4 % (0-1); EOSINOPHILS % (AUTO) 0.1 % (0-6); HEMATOCRIT 26.3 % (35.0-45.0); HEMOGLOBIN 7.8 g/dl (12.0-16.0); LYMPHOCYTES # (AUTO) 1.5 X10'3 (1.1-4.8); LYMPHOCYTES % (AUTO) 23.6 % (21-51); MEAN CORPUSCULAR HEMOGLOBIN 21.2 PG (27.0-31.0); MEAN CORPUSCULAR HGB CONC 29.7 g/dL (33.0-36.5); MEAN CORPUSCULAR VOLUME 71.2 FL (78-98); MEAN PLATELET VOLUME 8.8 FL (7.4-10.4); MONOCYTES # (AUTO) 0.8 X10'3 (0-0.9); MONOCYTES % (AUTO) 13.1 % (2-12); NEUTROPHILS % (AUTO) 62.8 % (42-75); PLATELET COUNT 261 X10'3 (140-440); RED CELL DISTRIBUTION WIDTH 19.6 % (11.5-14.5); WHITE BLOOD COUNT 6.3 X10'3 (4.5-11.0)
[2024-09-23 07:48] LABS: ANION GAP 4 (8-16); BLOOD UREA NITROGEN 21 MG/DL (7-18); BUN/CREATININE RATIO 36.2 (10.0-20.0); CALCIUM 8.4 MG/DL (8.5-10.1); CHLORIDE 104 MMOL/L (99-107); CREATININE 0.58 MG/DL (0.40-0.90); GLUCOSE 85 MG/DL (70-104); POTASSIUM 3.9 MMOL/L (3.5-5.1); SODIUM 142 MMOL/L (135-145); eCRCL 55 ML/MIN; eGFR > 90 ML/MIN
[2024-09-23 08:20] LABS: ANISOCYTOSIS 2+; HYPOCHROMASIA 1+; MICROCYTOSIS 1+; PLATELET ESTIMATE NORMAL; POIKILOCYTOSIS 1+
[2024-09-23 08:21] LABS: STOMATOCYTES 1+
[2024-09-23 08:55] VITALS: RESP 18; O2SAT 96
[2024-09-23] MEDS ORDERED: POTA-207 PO (10:35)
[2024-09-23] MEDS ORDERED: FURO20TA4 PO (10:35)
[2024-09-23 11:00] VITALS: BP 113/48; PULSE 68; RESP 15; TEMP 97.3; O2SAT 93
== END 2024-09-23 13:00 | disposition home or self-care (01) | DRG 291 ==
LOC: ER 09:56 → ED HOLD 12:58 → PCU 3S 09-22 01:05
PROVIDERS: ADMIT Internal Medicine; ATTEND Internal Medicine
DX: I11.0 Hypertensive heart disease with heart failure (principal); I50.33 Acute on chronic diastolic (congestive) heart failure; J96.01 Acute respiratory failure with hypoxia; C50.812 Malignant neoplasm of overlapping sites of left female breast; I25.10 Atherosclerotic heart disease of native coronary artery without angina pectoris; I48.91 Unspecified atrial fibrillation; Z79.01 Long term (current) use of anticoagulants; Z79.82 Long term (current) use of aspirin; Z79.899 Other long term (current) drug therapy; I25.2 Old myocardial infarction
CPT/HCPCS: 36415; 71045; 71250; 80048; 80053; 83880; 84484; 85008; 85025; 85379; 87081; 93005; 93306; 93971; 94760; 96374; 96375; 99285; G0378; J1940; J2919